=== PATIENT | male | born 1975 | race Caucasian/White ===

== ENCOUNTER → 2020-08-12 | Outpatient (CLI) | payer OTHER ==
[~2020-08-12] VITALS: Ht 182.9 cm; Wt 81.6 kg
[2020-08-12 13:47] LABS: Basophils # (auto) 0 10 ^3/uL (0-0.2); Basophils % (auto) 0.4 % (0.0-2.0); Eosinophils # (auto) 0.1 10 ^3/uL (0-0.8); Eosinophils % (auto) 1.3 % (0.0-7.0); Hematocrit 43.6 % (41.0-53.0); Hemoglobin 14.7 g/dL (13.5-17.5); Lymphocytes # (auto) 1.4 10 ^3/uL (0.4-5.4); Lymphocytes % (auto) 27.6 % (10.0-50.0); Mean Corpuscular Hemoglobin 31.9 pg (28.0-32.0); Mean Corpuscular Hgb Conc. 33.7 g/dL (32.0-36.0); Mean Corpuscular Volume 94.7 fL (80.0-100.0); Monocytes # (auto) 0.7 10 ^3/uL (0-1.3); Monocytes % (auto) 12.6 % (0.0-12.0); Neutrophils % (auto) 58.1 % (37.0-80.0); Nucleated Red Blood Cells % 0.1 %; Platelet Count (auto) 188 10^3/uL (140-450); White Blood Cell 5.2 10^3/uL (4.4-10.8)
[2020-08-12 14:07] LABS: INR 1.07 (0.9-1.15); Partial Thromboplastin Time 29.2 sec (23.0-31.2)
[2020-08-12 14:12] LABS: BUN/Creatinine Ratio 16.2; Calcium 8.7 mg/dL (8.5-10.1); Potassium 4.3 mmol/L (3.5-5.1)
[2020-08-12 14:15] LABS: Bilirubin, Total 1.8 mg/dL (0.2-1.0); Total Protein 7.7 g/dL (6.4-8.2)
[2020-08-12 14:50] LABS: Urine Bacteria NONE SEEN /hpf (None Seen); Urine Blood Negative /uL (Negative); Urine WBC <1 /hpf (0 - 3)
== END | disposition home or self-care (01) ==
LOC: LAB 13:00 → EDSTATUS 08-15 14:52
PROVIDERS: ATTEND Urology
DX: Z01.818 Encounter for other preprocedural examination (principal); I86.1 Scrotal varices; Z90.79 Acquired absence of other genital organ(s); Z79.899 Other long term (current) drug therapy; Z20.828 Contact with and (suspected) exposure to other viral communicable diseases; Z98.890 Other specified postprocedural states
CPT/HCPCS: 36415; 80053; 81001; 85025; 85610; 85730; U0003